=== PATIENT | male | born 1955 | race Caucasian/White ===

== ENCOUNTER → 2019-08-17 | Outpatient (CLI) | payer BC ==
[2015-04-12 06:50] VITALS: BP 141/84
[~2019-08-17] MED LIST: AZIT250T6 PO
--- NOTE | 2019-08-17 16:10 | RAD ---
SHOULDER 2+V RIGHT, HUMERUS RIGHT History: Right shoulder and arm pain Comparison: None. Right shoulder: Findings: 3 views of the right shoulder submitted. There is degenerative change of the right acromioclavicular joint. No acute fracture or dislocation is identified. There is mild osteoarthritic change of the glenohumeral articulation. Impression: 1. There is mild osteoarthritic change. Right humerus radiographs FINDINGS: 2 views of the right humerus are submitted. No acute fracture is identified. There is bony excrescence along the mid shaft of the humerus, fairly smooth margins. IMPRESSION: 1.No acute fracture is identified. 2. There is ossific excrescence along the midshaft of the right humerus, has more benign appearing features. However if there is pain referable to this region, bone scan or MRI evaluation is advised. Electronically signed by: Mateo Devi MD (08/17/2019 4:07 PM) [id number]
== END | disposition home or self-care (01) ==
LOC: DXRAD 15:44
PROVIDERS: ATTEND Physician Assistant Medical
DX: M19.011 Primary osteoarthritis, right shoulder (principal)
CPT/HCPCS: 73030; 73060

== ENCOUNTER 2019-09-20 14:46 | Emergency (ER) | payer BC ==
[~2019-09-20] VITALS: Ht 182.9 cm; Wt 125.9 kg
[2019-09-20] MEDS ORDERED: IV NORMAL SALINE 1,000ML 1,000 ML IV ONE (15:00)
[2019-09-20] MEDS ORDERED: CONTRAST GIVEN MC PRN (15:15)
[2019-09-20] MEDS ORDERED: IOHEXOL 350 MG/ML 100 ML VIAL. IV ONE (15:15)
--- NOTE | 2019-09-20 15:18 | EKG ---
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
--- NOTE | 2019-09-20 15:39 | PHYS DOC ---
Past History Past Medical History: High Cholesterol, Hypertension Past Surgical History: Knee Replacement, Tonsillectomy, Other Additional Past Surgical Histo: shoulder, vasot Smoking: Quit Greater Than 1 Year Alcohol Use: Rarely Drug Use: None General Adult EDM: Chief Complaint: BACK PAIN OR INJURY HPI: HPI: 63-year-old male presents with report of pleuritic chest pain with increased shortness of air. Patient reports worse with exertion. Reports has been worse today. Patient reports testing positive for COVID-19 proximally 1 month ago. Patient is also having some mid right-sided thoracic back pain. Patient reports calling his PCP who instructed patient to present to the ER with concern for possible PE. Denies any fever. Denies trauma. Denies leg swelling or calf tenderness. Review of Systems: Review of Systems: Constitutional: Denies fever or chills Eyes: Denies redness or eye pain HENT: Denies nasal congestion or sore throat Respiratory: Reports cough, shortness of breath, and dyspnea with exertion Cardiovascular: Reports pleuritic chest pain; denies palpitations GI: Denies abdominal pain, nausea, or vomiting : Denies dysuria or hematuria Musculoskeletal: Denies back pain or joint pain Integument: Denies rash or skin lesions Neurologic: Denies headache, focal weakness or sensory changes Complete systems were reviewed and found to be within normal limits, except as documented in this note. Heart Score: HEART Score for Chest Pain: HEART Score for Chest Pain Response (Comments) Value History Slighlty/Non-Suspicious 0 ECG Normal 0 Age >45 - < 65 1 Risk Factors >3 Risk Factors or Hx CAD 2 Troponin < Normal Limit 0 Total 3 Risk Factors: Risk Factors: DM, Current or recent (<one month) smoker, HTN, HLP, family history of CAD, obesity. Risk Scores: Score 0 - 3: 2.5% MACE over next 6 weeks - Discharge Home Score 4 - 6: 20.3% MACE over next 6 weeks - Admit for Clinical Observation Score 7 - 10: 72.7% MACE over next 6 weeks - Early Invasive Strategies Current Medications: Current Meds: Current Medications Medications (Trade) Dose Ordered Sig/Susy Start Time Stop Time Status Last Admin Dose Admin Info (Do NOT chart on this entry -- for MONITORING) 1 each PRN DAILY PRN 09/20/19 15:15 09/22/19 15:14 Iohexol (Omnipaque 350 Mg/ml) 100 ml 1X ONCE 09/20/19 15:15 09/20/19 15:16 DC Sodium Chloride 1,000 ml @ 1,000 mls/hr 1X ONCE 09/20/19 15:00 09/20/19 15:59 09/20/19 15:00 1,000 MLS/HR Allergies: Allergies: Allergies Coded Allergies Type Severity Reaction Last Updated Verified metoclopramide Allergy Severe "Hyper" 12/05/13 Yes metronidazole Allergy Severe neutropenic 12/05/13 Yes adhesive tape Allergy Intermediate TORE SKIN OFF 09/20/19 Yes Physical Exam: PE: Constitutional: Well developed, well nourished, no acute distress, non-toxic appearance HENT: Normocephalic, atraumatic Eyes: Conjunctiva normal, no discharge Neck: Normal range of motion, no tenderness, supple Lungs & Thorax: No respiratory distress, equal chest rise and fall Abdomen: Soft, no tenderness Skin: Warm, dry, no erythema, no rash Back: No midline tenderness, no CVA tenderness, right mid thoracic paraspinal tenderness Extremities: No tenderness, ROM intact, no edema Neurologic: Alert and oriented X 3, no focal deficits noted Psychologic: Affect normal, judgment normal Current Patient Data: Vital Signs: Vital Signs Date Time Temp Pulse Resp B/P (MAP) Pulse Ox O2 Delivery O2 Flow Rate FiO2 09/20/19 15:01 98.2 73 18 144/81 (102) 97 Room Air EKG: EKG: @1515 NSR at 72bpm, NO ST elevation, QRS 108ms, QT/QTc 368/409ms Radiology/Procedures: Radiology/Procedures: PROCEDURE: CT ANGIOGRAPHY CHEST Exam: CT of chest with contrast INDICATION: Pleuritic chest pain, Covid positive TECHNIQUE: Sequential axial images through the chest obtained following the administration of 99 mL of Isovue-370 IV contrast. Sagittal and coronal reformatted images were reconstructed from the axial data and reviewed. 3-D reformatted images were reconstructed from the axial data and reviewed. Comparisons: None FINDINGS: Visual is portions of the thyroid are unremarkable. No enlarged mediastinal lymph nodes are identified. Heart size is normal. No pericardial effusion. Thoracic aorta has a normal course and caliber. Pulmonary artery is not enlarged. No pulmonary embolus identified within the main, lobar or segmental pulmonary arteries. Airways are patent. There is patchy areas of groundglass opacity noted within the peripheral lungs bilaterally. No focal consolidation. No pleural effusion or thickening. Visualized upper abdomen is unremarkable. No suspicious osseous lesions or acute fractures. IMPRESSION: 1. No pulmonary embolus identified within the main, lobar or segmental pulmonary arteries. 2. Mild patchy groundglass opacity in the periphery of the lungs bilaterally consistent with provided history of COVID Exposure: One or more of the following in the visualized dose reduction techniques were utilized for this examination: 1. Automated exposure control 2. Adjustment of the MA and/or KV according to patient size 3. Use of iterative of reconstructive technique Electronically signed by: Linda Rodriguez MD (09/20/2019 4:25 PM) [id number] Course & Med Decision Making: Course & Med Decision Making Pertinent Labs and Imaging studies reviewed. (See chart for details) Patient with known COVID19 presents with report of progressive dyspnea with exertion, pleuritic pain, and thoracic back pain. Tested positive approximately 4 weeks ago. PCP concerned for PE. Afebrile. EKG stable. Labs obtained and posted to chart. Troponin WNL. CTA chest without signs of PE but noted ground glass opacities consistent for viral pneumonia from COVID-19. Symptoms appears more consistent for continued COVID-19 infection. HEART score 3. Patient stable for discharge with outpatient follow-up with PCP. Discussed findings and plan with patient, who acknowledges understanding and agreement. COVID-19 CRITERIA: The patient was evaluated during the global COVID-19 pandemic, and that diagnosis was suspected/considered upon their initial presentation. Their evaluation, treatment and testing was consistent with current guidelines for patients who present with complaints or symptoms that may be related to COVID-19. Dragon Disclaimer: Dragon Disclaimer: This electronic medical record was generated, in whole or in part, using a voice recognition dictation system. Departure Departure: Impression: Primary Impression: COVID-19 virus infection Disposition: 01 HOME/RESIDENCE PRIOR TO ADM Condition: STABLE Referrals: CEDRIC KHANNA (PCP) Patient Instructions: Viral Syndrome Additional Instructions: ICE or HEAT area 20 min on then leave off for next few days. COVID-19 Assessment COVID-19 Patient Risks: Age 65 or older: No Sign of co-morbidity: Yes Exp to person + for COVID: Yes Exp to PUI: No Travel from affected area: No Lower respiratory symptoms: Yes Fever: No PPE Use: Full PPE with N95 mask or PAPR: Yes SHAJI JONES DO September 20, 2019 15:39
[2019-09-20 15:40] LABS: BASO # 0.1 x10^3/uL (0.0-0.2); BASO % 1 % (0-3); EOS # 0.5 x10^3/uL (0.0-0.7); EOS % 4 % (0-3); HEMATOCRIT 43.1 % (39.0-53.0); HEMOGLOBIN 14.5 g/dL (13.0-17.5); LYMPH % 29 % (24-48); MEAN CORPUSCULAR HEMOGLOBIN 30 pg (25-35); MEAN CORPUSCULAR HGB CONC 34 g/dL (31-37); MEAN CORPUSCULAR VOLUME 89 fL (79-100); MONO % 9 % (0-9); NEUT % 57 % (31-73); PLATELET COUNT 302 x10^3/uL (140-400); RED BLOOD COUNT 4.83 x10^6/uL (4.30-5.70); RED CELL DISTRIBUTION WIDTH 14.9 % (11.5-14.5); WHITE BLOOD COUNT 10.5 x10^3/uL (4.0-11.0)
[2019-09-20 15:49] LABS: CALCIUM 9.8 mg/dL (8.5-10.1); CREATININE 1.8 mg/dL (0.7-1.3); GFR 38.4; POTASSIUM 4.5 mmol/L (3.5-5.1)
[2019-09-20 16:06] LABS: ALBUMIN 3.7 g/dL (3.4-5.0); TOTAL BILIRUBIN 0.3 mg/dL (0.2-1.0); TOTAL PROTEIN 7.4 g/dL (6.4-8.2)
--- NOTE | 2019-09-20 16:28 | RAD ---
Exam: CT of chest with contrast INDICATION: Pleuritic chest pain, Covid positive TECHNIQUE: Sequential axial images through the chest obtained following the administration of 99 mL of Isovue-370 IV contrast. Sagittal and coronal reformatted images were reconstructed from the axial data and reviewed. 3-D reformatted images were reconstructed from the axial data and reviewed. Comparisons: None FINDINGS: Visual is portions of the thyroid are unremarkable. No enlarged mediastinal lymph nodes are identified. Heart size is normal. No pericardial effusion. Thoracic aorta has a normal course and caliber. Pulmonary artery is not enlarged. No pulmonary embolus identified within the main, lobar or segmental pulmonary arteries. Airways are patent. There is patchy areas of groundglass opacity noted within the peripheral lungs bilaterally. No focal consolidation. No pleural effusion or thickening. Visualized upper abdomen is unremarkable. No suspicious osseous lesions or acute fractures. IMPRESSION: 1. No pulmonary embolus identified within the main, lobar or segmental pulmonary arteries. 2. Mild patchy groundglass opacity in the periphery of the lungs bilaterally consistent with provided history of COVID Exposure: One or more of the following in the visualized dose reduction techniques were utilized for this examination: 1. Automated exposure control 2. Adjustment of the MA and/or KV according to patient size 3. Use of iterative of reconstructive technique Electronically signed by: Linda Rodriguez MD (09/20/2019 4:25 PM) [id number]
[2019-09-20 16:54] VITALS: BP 143/53
== END 2019-09-20 16:57 | disposition home or self-care (01) ==
LOC: ER 14:46
DX: U07.1 COVID-19 (principal); E78.00 Pure hypercholesterolemia, unspecified; I10 Essential (primary) hypertension; Z87.891 Personal history of nicotine dependence; Z88.8 Allergy status to other drugs, medicaments and biological substances
CPT/HCPCS: 36415; 71275; 80053; 82553; 83690; 83735; 83880; 84484; 85025; 85610; 85730; 93005; 99285; J7030

== ENCOUNTER → 2019-11-28 | Outpatient (CLI) | payer OTHER ==
--- NOTE | 2019-11-28 11:57 | RAD ---
Noncontrast CT scan of the abdomen and pelvis without comparison for groin pain and hematuria. TECHNIQUE: Contiguous helical axial images are obtained through the abdomen and pelvis. Sagittal and coronal reformations are evaluated. FINDINGS: Lung bases are clear. Evaluation of the solid organ parenchyma is limited by lack of IV contrast, however there are no significant morphologic abnormalities involving the liver, spleen, pancreas, bilateral adrenal glands, left kidney, or gallbladder. There is a 5 cm exophytic cyst arising from the posterior midpole the right kidney which is incompletely evaluated on this noncontrast exam. Benignity is suspected however. Consider further clarification with renal ultrasound on elective basis. 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 There is no hydronephrosis involving either kidney. No renal or ureteral calculi are identified. No areas of focal bowel wall thickening or bowel dilatation are identified. The appendix is normal. There are numerous sigmoid diverticula, with no evidence of acute diverticulitis. No suspicious mesenteric or retroperitoneal adenopathy is seen. The urinary bladder is only partially fluid distended but is grossly unremarkable. There is severe multilevel degenerative changes of lower lumbar spine. No suspicious osteoblastic or osteolytic bone lesions. IMPRESSION: 1. 5 cm exophytic cyst arising from the midpole the right kidney, likely benign, but incompletely characterized on this noncontrast examination. Consider definitive characterization with renal ultrasound on an elective basis. 2. Multiple sigmoid diverticula with no evidence of diverticulitis. 3. No renal calculi or hydronephrosis. Evaluation of the urinary bladder and solid renal parenchyma is limited by lack of IV contrast and incomplete fluid distention of the bladder. Para PQRS Compliance Statement: One or more of the following individualized dose reduction techniques were utilized for this examination: 1. Automated exposure control 2. Adjustment of the mA and/or kV according to patient size 3. Use of iterative reconstruction technique Electronically signed by: Larry Willams MD (11/28/2019 11:54 AM) [id number]
== END | disposition home or self-care (01) ==
LOC: CT 08:12
PROVIDERS: ATTEND Family Medicine
DX: K57.30 Diverticulosis of large intestine without perforation or abscess without bleeding (principal); N28.1 Cyst of kidney, acquired; N32.89 Other specified disorders of bladder; M47.816 Spondylosis without myelopathy or radiculopathy, lumbar region
CPT/HCPCS: 74176

== ENCOUNTER → 2019-12-07 | Outpatient (CLI) | payer OTHER ==
--- NOTE | 2019-12-07 14:45 | RAD ---
Renal sonography Clinical indications: Right renal lesion seen on CT. FINDINGS: The longitudinal and AP and transverse dimensions of the right kidney are 10.6 m centimeters and 5.4 cm and 5.9 cm respectively. There is a prominent cyst of the upper pole measuring 5.2 cm which corresponds to the CT finding. Additional smaller cyst is seen involving the upper pole measuring 1.7 cm. No hydronephrosis or perinephric fluid collection is seen. The longitudinal and AP and transverse dimensions of the left kidney are 11.4 cm and 5.6 centers and 5.4 cm respectively. No renal mass or hydronephrosis or perinephric fluid collection is seen on the left side. Urinary bladder volume is 145 cc prior to voiding. No post void urinary bladder residual volume is evident. No intraluminal echodensities or masses of the urinary bladder are seen. IMPRESSION: Finding seen on CT represents a simple cyst. No further follow-up is needed. No hydronephrosis. Electronically signed by: Nithin Wyatt MD (12/07/2019 2:41 PM) [id number]
== END | disposition home or self-care (01) ==
LOC: US 10:14
PROVIDERS: ATTEND Family Medicine
DX: N28.1 Cyst of kidney, acquired (principal)
CPT/HCPCS: 76770

== ENCOUNTER → 2020-04-10 | Outpatient (CLI) | payer OTHER ==
[2020-04-10 11:14] LABS: BASO % 0 % (0-3); EOS # 0.4 x10^3/uL (0.0-0.7); EOS % 4 % (0-3); HEMATOCRIT 44.6 % (39.0-53.0); HEMOGLOBIN 14.7 g/dL (13.0-17.5); LYMPH # 2.5 x10^3/uL (1.0-4.8); LYMPH % 28 % (24-48); MEAN CORPUSCULAR HEMOGLOBIN 30 pg (25-35); MEAN CORPUSCULAR HGB CONC 33 g/dL (31-37); MEAN CORPUSCULAR VOLUME 90 fL (79-100); MONO # 0.7 x10^3/uL (0.0-1.1); MONO % 8 % (0-9); NEUT # 5.2 x10^3uL (1.8-7.7); NEUT % 59 % (31-73); PLATELET COUNT 257 x10^3/uL (140-400); RED BLOOD COUNT 4.94 x10^6/uL (4.30-5.70); RED CELL DISTRIBUTION WIDTH 14.7 % (11.5-14.5); WHITE BLOOD COUNT 8.8 x10^3/uL (4.0-11.0)
[2020-04-10 11:20] LABS: CALCIUM 9.7 mg/dL (8.5-10.1); CREATININE 1.8 mg/dL (0.7-1.3); GFR 38.3; PHOSPHORUS 3.2 mg/dL (2.6-4.7); POTASSIUM 4.5 mmol/L (3.5-5.1)
[2020-04-10 11:44] LABS: BACTERIA,URINE FEW /HPF (0-FEW); BILIRUBIN,URINE NEG (NEG); CLARITY,URINE CLEAR; COLOR,URINE YELLOW; GLUCOSE,URINE NEG (NEG); NITRITE,URINE NEG (NEG); RBC,URINE OCC /HPF (0-2); SQUAMOUS EPITHELIAL CELL,UR OCC /LPF; UROBILINOGEN,URINE 0.2 mg/dL (0.2 mg/dL); WBC,URINE OCC /HPF (0-4)
[2020-04-10 14:04] LABS: CREATININE,RANDOM URINE < 13.0 mg/dL (Not Establ.)
[2020-04-10 19:09] LABS: C3 COMPLEMENT 155 mg/dL (82-167); C4 COMPLEMENT 31 mg/dL (12-38)
[2020-04-10 21:09] LABS: MICROALB RD UR 297.9 ug/mL (Not Estab.)
[2020-04-11 01:09] LABS: HEMOGLOBIN A1C 5.9 % (4.8-5.6)
[2020-04-11 19:09] LABS: ANA INTERP Negative (.)
== END ==
LOC: LAB 09:42
PROVIDERS: ATTEND Physician Assistant Medical
DX: N18.32 Chronic kidney disease, stage 3b (principal)
CPT/HCPCS: 36415; 80048; 81001; 82043; 82570; 83036; 84100; 84156; 84165; 85025; 86038; 86160; 86256; 86334

== ENCOUNTER → 2020-05-23 | Outpatient (CLI) | payer OTHER ==
[2020-05-23 15:37] LABS: CALCIUM 9.7 mg/dL (8.5-10.1); CREATININE 1.9 mg/dL (0.7-1.3); POTASSIUM 4.8 mmol/L (3.5-5.1)
== END ==
LOC: LAB 14:20
PROVIDERS: ATTEND Physician Assistant Medical
DX: N18.32 Chronic kidney disease, stage 3b (principal)
CPT/HCPCS: 36415; 80048